=== PATIENT | male | born 1970 | race Caucasian/White ===

== ENCOUNTER → 2016-11-28 | Outpatient (CLI) | payer BC ==
[~2016-11-28] MED LIST: ACET-1256 PO; IBUP-1050 PO
--- NOTE | 2016-11-28 14:25 | DIAGNOSTIC IMAGING REPORT ---
LEFT FOOT 3 VIEWS CLINICAL HISTORY: Fourth toe pain. FINDINGS: 3 views of left foot are obtained. No prior studies are available for comparison at the time of dictation. The skeletal structures are well mineralized. No fracture is seen. The joint spaces of the foot are well-maintained. The overlying soft tissues are within normal limits. IMPRESSION: No acute bony abnormality is seen in the left foot. Electronically signed by: Angelo Strickland M.D. 11/28/2016 2:23 PM Dictated Date/Time: 11/28/2016 2:22 PM
== END | disposition home or self-care (01) ==
LOC: C.RADBC 13:49
PROVIDERS: ATTEND Family Medicine
DX: M79.672 Pain in left foot (principal)

== ENCOUNTER → 2016-12-21 | Outpatient (CLI) | payer BC ==
--- NOTE | 2016-12-21 14:44 | DIAGNOSTIC IMAGING REPORT ---
LEFT FOOT MIN 3 VIEWS ROUTINE CLINICAL HISTORY: LEFT FOOT PAIN COMPARISON: 11/28/2016 DISCUSSION: No fractures or dislocations are visualized. There are no erosive or destructive changes. IMPRESSION: No change the prior study. No fractures, dislocations, or erosive changes are visualized Electronically signed by: Fabián Stoll M.D. 12/21/2016 2:43 PM Dictated Date/Time: 12/21/2016 2:42 PM
== END | disposition home or self-care (01) ==
LOC: C.RADBC 14:09
PROVIDERS: ATTEND Family Medicine
DX: M79.672 Pain in left foot (principal)